=== PATIENT | male | born 1930 | race Caucasian/White ===

== ENCOUNTER 2016-03-15 07:53 | Emergency (ER) | payer MEDICARE, OTHER ==
[2016-03-15] MEDS ORDERED: Rocephin 1000 MG INJ IM ONE (08:21)
[2016-03-15] MEDS ORDERED: Rocephin 1000 MG INJ ONE (08:21)
[2016-03-15] MEDS ORDERED: XYLOCAINE 1% HCL 20 ML MDV ONE (08:21)
--- NOTE | 2016-03-15 08:26 | ERPHSYRPT ---
- History of Present Illness Time Seen by Provider: 03/15/16 08:22 Source: patient Exam Limitations: no limitations Patient Subjective Stated Complaint: pt reports his cat scratched him 3 days ago -reports redness to left forearm Triage Nursing Assessment: pt pink warm et dry-a & o x 3-redness et warmth noted to left forearm-radial pulse strong Physician History: pt reports his cat scratched him 3 days ago-reports redness to left forearm Timing/Duration: day(s) (5-6 days ago) Severity: mild Modifying Factors: Improves With: cold therapy Associated Symptoms: denies symptoms Allergies/Adverse Reactions: No Known Drug Allergies Allergy (Verified 03/15/16 08:00) Home Medications: Levothyroxine Sodium 75 Mcg [Synthroid 75 Mcg] 75 mcg PO DAILY 11/22/15 [ History] Ropinirole HCl 0.5 mg [Requip 0.5 MG] 1 mg PO DAILY 11/22/15 [History] Albuterol 17 gm IH QID 01/30/16 [History] Atorvastatin Calcium [Lipitor 20MG Tablet] 20 mg PO DAILY 01/30/16 [History] Furosemide 20 mg [Lasix 20 mg] 20 mg PO DAILY 01/30/16 [History] Hydrocodone Bit/Acetaminophen [[place] 10-325 Tablet] 1 tab PO Q6H PRN 01/30/16 [ History] Ipratropium [place] 0.2 mg IH QID 01/30/16 [History] Metoprolol Succinate 50 mg [Toprol Xl 50 MG] 50 mg PO DAILY 01/30/16 [ History] Furosemide 40 mg [Lasix 40 MG] 40 mg PO DAILY 02/12/16 [History] Hx Tetanus, Diphtheria Vaccination/Date Given: No Hx Influenza Vaccination/Date Given: No Hx Pneumococcal Vaccination/Date Given: No Immunizations Up to Date: Yes - Review of Systems Constitutional: No Symptoms Eyes: No Symptoms Ears, Nose, & Throat: No Symptoms Respiratory: No Symptoms Cardiac: No Symptoms Abdominal/Gastrointestinal: No Symptoms Genitourinary Symptoms: No Symptoms Musculoskeletal: No Symptoms Skin: Other (cat scratchn on left forearm) - Past Medical History Pertinent Past Medical History: Yes Neurological History: Other ENT History: No Pertinent History Cardiac History: High Cholesterol, Hypertension Respiratory History: Asthma, Bronchitis, COPD, Emphysema, Sleep Apnea Endocrine Medical History: No Pertinent History Musculoskeletal History: Arthritis GI Medical History: Hemorrhoids, Hernia History: No Pertinent History Psycho-Social History: No Pertinent History Male Reproductive Disorders: No Pertinent History Other Medical History: skin cancer, Dizziness - Past Surgical History Past Surgical History: Yes Neuro Surgical History: No Pertinent History Cardiac: Other Respiratory: No Pertinent History Gastrointestinal: Hernia Repair Genitourinary: No Pertinent History Musculoskeletal: No Pertinent History Male Surgical History: No Pertinent History Other Surgical History: Abdominal aortic aneurysm repair, right ear surgery x3, - Social History Smoking Status: Former smoker How long have you smoked: 70 YEARS Exposure to second hand smoke: No Drug Use: none Patient Lives Alone: No - Nursing Vital Signs Nursing Vital Signs: Initial Vital Signs Temperature 97.9 F Temperature Source Oral Pulse Rate 72 Respiratory Rate 22 Blood Pressure [Right Arm] 170/69 Pain Intensity 0 - Physical Exam General Appearance: no apparent distress Eye Exam: PERRL/EOMI Ears, Nose, Throat Exam: normal ENT inspection Extremity Exam: inflammation (left forearm), swelling SpO2: 98 Oxygen Delivery: Room Air - Course Nursing assessment & vital signs reviewed: Yes - Progress Progress: improved Counseled pt/family regarding: diagnosis, need for follow-up - Departure Time of Disposition: 08:23 Departure Disposition: Home Clinical Impression: Cat scratch of forearm Qualifiers: Encounter type: initial encounter Laterality: left Qualified Code(s): S50.812A - Abrasion of left forearm, initial encounter; W55.03XA - Scratched by cat, initial encounter Condition: Stable Critical Care Time: No Referrals: FRANCOIS MANNING MD [Primary Care Provider] - Instructions: Cat Scratch Disease/Fever Additional Instructions: Please follow the instructions given to you. Please take your medication as prescribed if given. If symptoms recur or get worse, come back to the emergency room if you cannot reach your primary care physician, or call your primary care physician for an appointment. Again if your symptoms get worse, come back to the emergency room. Thanks for visiting emergency room, and let us take care of you. Prescriptions: Mupirocin [Bactroban OINTMENT] 1 gm TP BID #30 tube Cephalexin Mh 500 mg [Keflex 500 mg] 500 mg PO Q6H #40 capsule
[2016-03-15 08:31] VITALS: BP 165/70; PULSE 75; O2SAT 97
== END 2016-03-15 08:30 | disposition home or self-care (01) ==
LOC: ED 07:53
DX: S50.812A Abrasion of left forearm, initial encounter (principal); W55.03XA Scratched by cat, initial encounter
CPT/HCPCS: 96372; 99282; J0696

== ENCOUNTER 2016-03-15 12:17 | Emergency (ER) | payer MEDICARE, OTHER ==
[2016-03-15] MEDS ORDERED: PROTONIX 40 MG IV IV ONE ×2 (12:19→12:34)
[2016-03-15] MEDS ORDERED: Pepcid 20 MG VIAL IV ONE ×2 (12:19→12:34)
[2016-03-15] MEDS ORDERED: PROVENTIL 2.5 MG/3 ML NEB IH ONE ×2 (12:30→12:31)
[2016-03-15] MEDS ORDERED: Sodium Chloride 0.9% 1000 ML 1,000 ML IV SCH (12:30)
[2016-03-15] MEDS ORDERED: Sodium Chloride 0.9% 1000 ML 1,000 ML ONE (12:34)
[2016-03-15 12:36] VITALS: O2SAT 91
[2016-03-15 12:58] LABS: BASOPHIL % 0.1 % (0.0-0.4); Eosinophil % 1.2 % (0.00-5.0); Granulocytes % 47.1 % (36.0-66.0); Lymphocytes % 44.5 % (24.0-44.0); Mean Cell Volume 89.6 fl (78-100); Mean Platelet Volume 10.9 fl (6-9.5); Monocytes % 7.1 % (0.0-12.0); Platelet Count 124 K/mm3 (150-450); Red Blood Count 3.93 M/mm3 (4.1-5.6); Red Cell Distribution Width 14.4 % (11.5-14.0); White Blood Count 7.5 K/mm3 (4.0-10.5)
[2016-03-15 13:00] LABS: Mean Corpuscular Hemoglobin 28.7 pg (26-32)
[2016-03-15 13:09] LABS: ANION GAP 13.9 MEQ/L (5-15); Carbon Dioxide 30.1 mEq/L (21-32); Potassium 3.6 mEq/L (3.5-5.1)
--- NOTE | 2016-03-15 13:17 | ERPHSYRPT ---
- History of Present Illness Time Seen by Provider: 03/15/16 13:10 Source: patient, EMS Exam Limitations: no limitations Patient Subjective Stated Complaint: PT BROUGHT TO ED PER EMS REPORTS INCREASED SOB-PT STARTED ON NEW ANTIBIOTIC RUBIA 30 MIN AFTER TAKING-DENIES PAIN Triage Nursing Assessment: PT FLUSHED WARM UPON ARRIVAL-INCREASED WORK OF BREATHING NOTED-WHEEZE NOTED PRIOR TO NEB TX-REDNESS NOTED BODYWIDE Physician History: 80-year-old male came to the emergency room with complaining of shortness of breath. 34 hours ago. Patient was seen in the emergency room when he came with complaining of cat scratch on his left forearm and was given intramuscular Rocephin and cephalexin 500 mg 4 times a day. Patient went home and took the first dose of cephalexin and in half an hour he started having epigastric pain, substernal pain, which shortness of breath. So he called ambulance and patient was brought into the emergency room. Patient did not have any chest pain when he came to the emergency room was mildly short of breath. He was complaining of some epigastric discomfort. Timing/Duration: today Severity of Dyspnea-Max: mild Severity of Dyspnea-Current: mild Possible Cause: no prior episodes Modifying Factors: Improves With: nothing Associated Symptoms: denies symptoms Allergies/Adverse Reactions: No Known Drug Allergies Allergy (Verified 03/15/16 12:32) Home Medications: Levothyroxine Sodium 75 Mcg [Synthroid 75 Mcg] 75 mcg PO DAILY 11/22/15 [ History] Ropinirole HCl 0.5 mg [Requip 0.5 MG] 1 mg PO DAILY 11/22/15 [History] Albuterol 17 gm IH QID 01/30/16 [History] Atorvastatin Calcium [Lipitor 20MG Tablet] 20 mg PO DAILY 01/30/16 [History] Furosemide 20 mg [Lasix 20 mg] 20 mg PO DAILY 01/30/16 [History] Hydrocodone Bit/Acetaminophen [[place] 10-325 Tablet] 1 tab PO Q6H PRN 01/30/16 [ History] Ipratropium [place] 0.2 mg IH QID 01/30/16 [History] Metoprolol Succinate 50 mg [Toprol Xl 50 MG] 50 mg PO DAILY 01/30/16 [ History] Furosemide 40 mg [Lasix 40 MG] 40 mg PO DAILY 02/12/16 [History] Hx Tetanus, Diphtheria Vaccination/Date Given: No Hx Influenza Vaccination/Date Given: No Hx Pneumococcal Vaccination/Date Given: No Immunizations Up to Date: Yes - Review of Systems Constitutional: No Symptoms Eyes: No Symptoms Ears, Nose, & Throat: No Symptoms Respiratory: Cough, Dyspnea Cardiac: No Symptoms Abdominal/Gastrointestinal: No Symptoms Genitourinary Symptoms: No Symptoms Musculoskeletal: No Symptoms Skin: No Symptoms - Past Medical History Pertinent Past Medical History: Yes Neurological History: Other ENT History: No Pertinent History Cardiac History: High Cholesterol, Hypertension Respiratory History: Asthma, Bronchitis, COPD, Emphysema, Sleep Apnea Endocrine Medical History: No Pertinent History Musculoskeletal History: Arthritis GI Medical History: Hemorrhoids, Hernia History: No Pertinent History Psycho-Social History: No Pertinent History Male Reproductive Disorders: No Pertinent History Other Medical History: skin cancer, Dizziness - Past Surgical History Past Surgical History: Yes Neuro Surgical History: No Pertinent History Cardiac: Other Respiratory: No Pertinent History Gastrointestinal: Hernia Repair Genitourinary: No Pertinent History Musculoskeletal: No Pertinent History Male Surgical History: No Pertinent History Other Surgical History: Abdominal aortic aneurysm repair, right ear surgery x3, - Social History Smoking Status: Former smoker How long have you smoked: 70 YEARS Exposure to second hand smoke: No Drug Use: none Patient Lives Alone: No - Nursing Vital Signs Nursing Vital Signs: Initial Vital Signs Pulse Rate 78 Respiratory Rate 28 Blood Pressure [Right Arm] 136/70 - Physical Exam General Appearance: mild distress Eye Exam: PERRL/EOMI Ears, Nose, Throat Exam: hearing grossly normal Neck Exam: normal inspection Respiratory Exam: diminished breath sounds, wheezing Cardiovascular/Chest Exam: normal heart sounds Abdominal/Gastrointestinal Exam: soft Extremity Exam: non-tender SpO2 Interpretation: borderline oxygenation SpO2: 91 Oxygen Delivery: Nasal Cannula - Course Nursing assessment & vital signs reviewed: Yes Ordered Tests: Active Orders 24 hr Category Date Time Status EKG-ER Only STAT Care 03/15/16 12:44 Active IV Insertion STAT Care 03/15/16 12:44 Active IV Insertion-2nd Peripheral STAT Care 03/15/16 12:44 Active Oxygen-ED Only NASAL CANNULA 2 lpm Care 03/15/16 12:45 Active BMP Stat Lab 03/15/16 12:28 Received CBC W DIFF Stat Lab 03/15/16 12:28 Completed Respiratory Nebulizer STAT RT 03/15/16 12:31 Completed Medication Summary Generic Name Dose Route Start Last Admin Trade Name Beth PRN Reason Stop Dose Admin Sodium Chloride 1,000 mls @ 50 mls/hr 03/15/16 12:30 03/15/16 12:38 Sodium Chloride 0.9% 1000 Ml IV 04/14/16 12:29 50 mls/hr .Q20H RUDDY Administration Discontinued Medications Generic Name Dose Route Start Last Admin Trade Name Beth PRN Reason Stop Dose Admin Albuterol Sulfate 2.5 mg 03/15/16 12:30 03/15/16 12:35 Proventil 2.5 Mg/3 Ml Neb IH 03/15/16 12:31 2.5 mg STAT ONE Administration Albuterol Sulfate Confirm 03/15/16 12:31 Proventil 2.5 Mg/3 Ml Neb Administered 03/15/16 12:32 Dose 2.5 mg IH .STK-MED ONE Famotidine 20 mg 03/15/16 12:19 03/15/16 12:38 Pepcid 20 Mg Vial IV 03/15/16 12:20 20 mg STAT ONE Administration Famotidine Confirm 03/15/16 12:34 Pepcid 20 Mg Vial Administered 03/15/16 12:35 Dose 20 mg IV .STK-MED ONE Sodium Chloride Confirm 03/15/16 12:34 Sodium Chloride 0.9% 1000 Ml Administered 03/15/16 12:35 Dose 1,000 mls @ ud .ROUTE .STK-MED ONE Pantoprazole Sodium 40 mg 03/15/16 12:19 03/15/16 12:38 Protonix 40 Mg Iv IV 03/15/16 12:20 40 mg STAT ONE Administration Pantoprazole Sodium Confirm 03/15/16 12:34 Protonix 40 Mg Iv Administered 03/15/16 12:35 Dose 40 mg IV .STK-MED ONE Lab/Rad Data: Laboratory Result Diagrams 03/15/16 12:28 Laboratory Results 03/15/16 Range/Units 12:28 WBC 7.5 (4.0-10.5) K/mm3 RBC 3.93 L (4.1-5.6) M/mm3 Hgb 11.3 L (12.5-18.0) gm/dl Hct 35.2 L (42-50) % MCV 89.6 (78-100) fl MCH 28.7 (26-32) pg MCHC 32.1 (32-36) g/dl RDW 14.4 H (11.5-14.0) % Plt Count 124 L (150-450) K/mm3 MPV 10.9 H (6-9.5) fl Gran % 47.1 (36.0-66.0) % Lymphocytes % 44.5 H (24.0-44.0) % Monocytes % 7.1 (0.0-12.0) % Eosinophils % 1.2 (0.00-5.0) % Basophils % 0.1 (0.0-0.4) % Basophils # 0.01 (0-0.4) - Progress Progress: improved Air Movement: good Blood Culture(s) Obtained: No Antibiotics given: No Counseled pt/family regarding: lab results, diagnosis, need for follow-up - Departure Time of Disposition: 13:18 Departure Disposition: Home Clinical Impression: Shortness of breath Side effects of treatment Qualifiers: Encounter type: initial encounter Qualified Code(s): T88.9XXA - Complication of surgical and medical care, unspecified, initial encounter Condition: Stable Critical Care Time: No Referrals: JOE MANNING MD [Primary Care Provider] - Instructions: Adverse Drug Reaction -- GI Intolerance Additional Instructions: hold cephalexin , follow up with Dr Joe manning on wednesday
[2016-03-15 13:21] VITALS: BP 125/55; PULSE 72
== END 2016-03-15 13:49 | disposition home or self-care (01) ==
LOC: ED 12:17
DX: R06.02 Shortness of breath (principal); T88.9XXA Complication of surgical and medical care, unspecified, initial encounter
CPT/HCPCS: 36000; 36415; 80048; 85025; 93005; 94640; 96360; 96374; 96375; 99284

== ENCOUNTER 2020-04-10 18:53 | Emergency (ER) | payer MEDICARE, OTHER ==
[2020-04-10] MEDS ORDERED: Sodium Chloride 0.9% 1000 ML 1,000 ML IV STA (19:48)
[2020-04-10] MEDS ORDERED: Sodium Chloride 0.9% 1000 ML 1,000 ML ONE (19:50)
[2020-04-10 20:01] LABS: Absolute Neutrophil Ct (ANC) 8.39 (1.4-6.9); BASOPHIL % 0.3 % (0.0-0.4); Basophil (Absolute #) 0.03 (0-0.4); Eosinophil % 0.2 % (0.00-5.0); Eosinophil (Absolute #) 0.02 (0-0.5); Hematocrit 34.9 % (42-50); Hemoglobin 10.8 gm/dl (12.5-18.0); Lymphocyte (Absolute #) 0.83 (1.0-4.6); Lymphocytes % 8.3 % (24.0-44.0); Mean Cell Volume 84.3 fl (78-100); Mean Corpuscular Hemoglobin 26.1 pg (26-32); Mean Corpuscular Hgb Concent. 30.9 g/dl (32-36); Mean Platelet Volume 10.7 fl (7.5-11.0); Monocyte (Absolute #) 0.74 (0.0-1.3); Monocytes % 7.4 % (0.0-12.0); Neutrophil % 83.8 % (36.0-66.0); Platelet Count 188 K/mm3 (150-450); Red Blood Count 4.14 M/mm3 (4.1-5.6); Red Cell Distribution Width 15.3 % (11.5-14.0)
--- NOTE | 2020-04-10 20:04 | ERPHSYRPT ---
- History of Present Illness Time Seen by Provider: 04/10/20 19:05 Source: patient, family, EMS Patient Subjective Stated Complaint: Medics states "HE fell yesterday and hit the front of his head and he refused to come to the ed. He fell again today and his son found him on the floor and he says his back and the back of his head hurts." Triage Nursing Assessment: PT presented via ambulance and placed in room 3. Pt has bruising noted to forehead, bruising noted to upper back. PT alert and confused. PT able to answer some questions but not others . PT son in room with him. Physician History: Patient has had two falls in the past 24 hours, with one yesterday Occurred: this afternoon, yesterday Reason for Fall: unknown, fell from standing pos Injuries/Pain Location: head, neck, back Loss of Consciousness: no loss of consciousness Quality: aching Severity of Pain-Max: moderate Severity of Pain-Current: mild Modifying Factors: Worsens With: movement Associated Symptoms (Fall): back pain, neck pain, trouble walking, No abdominal pain, No confusion, No chest pain, No dizziness, No extremity injury, No headach e, No lightheadedness, No seizures, No shortness of breath, No vomiting Allergies/Adverse Reactions: cephalexin [From Keflex] Allergy (Severe, Verified 04/10/20 19:22) Difficulty Breathing Home Medications: Levothyroxine Sodium 75 Mcg [Synthroid 75 Mcg] 75 mcg PO DAILY 11/22/15 [History] Ropinirole HCl 0.5 mg [Requip 0.5 MG] 1 mg PO DAILY 11/22/15 [History] Albuterol 17 gm IH QID 01/30/16 [History] Atorvastatin Calcium [Lipitor 20MG Tablet] 20 mg PO DAILY 01/30/16 [History] Furosemide 20 mg [Lasix 20 mg] 20 mg PO DAILY 01/30/16 [History] Hydrocodone Bit/Acetaminophen [[place] 10-325 Tablet] 1 tab PO Q6H PRN 01/30/16 [H istory] Ipratropium [place] 0.2 mg IH QID 01/30/16 [History] Metoprolol Succinate 50 mg [Toprol Xl 50 MG] 50 mg PO DAILY 01/30/16 [History] Furosemide 40 mg [Lasix 40 MG] 40 mg PO DAILY 02/12/16 [History] Hx Tetanus, Diphtheria Vaccination/Date Given: No Hx Influenza Vaccination/Date Given: No Hx Pneumococcal Vaccination/Date Given: No Immunizations Up to Date: Yes Travel Risk - International Travel Have you traveled outside of the country in past 3 weeks: No - Coronavirus Screening Are you exhibiting any of the following symptoms?: No Close contact with a COVID-19 positive Pt in past 14-21 Days: No - Review of Systems Constitutional: No Fever, No Chills Eyes: No Discharge, No Eye Pain Ears, Nose, & Throat: No Nose Discharge, No Epistaxis, No Mouth Pain Respiratory: No Cough, No Dyspnea Cardiac: No Chest Pain, No Edema, No Syncope Abdominal/Gastrointestinal: No Abdominal Pain, No Nausea, No Vomiting, No Diarrhea Genitourinary Symptoms: No Dysuria, No Hematuria Musculoskeletal: Back Pain, Neck Pain Skin: No Rash Neurological: No Dizziness, No Focal Weakness, No Sensory Changes Psychological: No Symptoms Endocrine: No Symptoms Hematologic/Lymphatic: No Easy Bleeding, No Easy Bruising All Other Systems: Reviewed and Negative - Past Medical History Pertinent Past Medical History: Yes Neurological History: Other ENT History: No Pertinent History Cardiac History: High Cholesterol, Hypertension Respiratory History: Asthma, Bronchitis, COPD, Emphysema, Sleep Apnea Endocrine Medical History: No Pertinent History Musculoskeletal History: Arthritis GI Medical History: Hemorrhoids, Hernia History: No Pertinent History Psycho-Social History: No Pertinent History Male Reproductive Disorders: No Pertinent History Other Medical History: skin cancer, Dizziness - Past Surgical History Past Surgical History: Yes Neuro Surgical History: No Pertinent History Cardiac: Other Respiratory: No Pertinent History Gastrointestinal: Hernia Repair Genitourinary: No Pertinent History Musculoskeletal: No Pertinent History Male Surgical History: No Pertinent History Other Surgical History: Abdominal aortic aneurysm repair, right ear surgery x3, - Social History Smoking Status: Former smoker How long have you smoked: 70 YEARS Exposure to second hand smoke: No Drug Use: none Patient Lives Alone: Yes - Nursing Vital Signs Nursing Vital Signs: Initial Vital Signs Temperature 97.4 F 04/10/20 18:54 Pulse Rate 81 04/10/20 18:54 Respiratory Rate 20 04/10/20 18:54 Blood Pressure 199/92 04/10/20 18:54 O2 Sat by Pulse Oximetry 96 04/10/20 18:54 Pain Scale Pain Intensity 4 - Michele Coma Score Best Eye Response (Spearman): (4) open spontaneously Best Verbal Response (Michele): (5) oriented Best Motor Response (Michele): (6) obeys commands Michele Total: 15 - Physical Exam General Appearance: no apparent distress, alert Head Injury: lacerations (superficial from the right forehead), swelling, No Richardson's Sign, No raccoon eyes, No tenderness Eye Exam: PERRL/EOMI, eyes nml inspection, No scleral icterus ENT Exam: airway nml, evidence of ENT injury Neck Exam: supple, trachea midline, normal alignment, normal inspection, c- collar in place (cleared and removed on physical examination on entrance into the emergency department), No limited range of motion, No paraspinous muscle tender, No tenderness, No mid-line tenderness Respiratory/Chest Exam: normal breath sounds, wheezing, No chest tenderness, No respiratory distress Cardiovascular Exam: normal heart sounds, regular rate/rhythm Gastrointestinal Exam: soft, normal bowel sounds, No tenderness, No distention, No guarding, No ecchymosis Back Exam: normal inspection, No CVA tenderness, No vertebral tenderness Extremity Exam: normal inspection, normal range of motion, pelvis stable, No contusions, No deformities, No bony point tenderness Neurologic Exam: alert, cooperative, accounts payable lead II-XII nml as tested, normal mood/affect, sensation nml, No motor deficits Skin Exam: normal color, warm, dry SpO2 Interpretation: normal SpO2: 96 O2 Delivery: Room Air - Course Nursing assessment & vital signs reviewed: Yes EKG Interpreted by Me: RATE (77), Sinus Rhythm, Left [place] Deviation, prolonged QT interval, Right Bundle Branch Block, Other (No acute ST or T wave changes in comparison to EKG from 03/13/2016; no appreciable change in comparison EKG from 03/13/2016) - CT Exams Head CT Interpretation: Tele-radiologist Report, No Fracture, No/Intracranial Hemorrhag Cervical Spine CT Interpretation: Tele-radiologist Report, No Fracture, Other Chest CT Interpretation: No Fracture, Other (, Pneumothorax, but enlarged pulmonary arteries favoring pulmonary hypertension; bibasilar fibrosis/scarring with new cardiomegaly) Abdomen/Pelvis CT Interpretation: Other (Compared to 04/01/2009. Enlarging 6 x 6.6 cm AAA, previously 4.9 x 4.9 cm with again aortobiiliac stent graft. No new acute ab dominal, pelvic abnormalities. Bony structures intact with osteopenia. Multilevel degenerative disc disease and new left hip arthroplasty and worsening moderate right hip D) Ordered Tests: Active Orders 24 hr Category Date Time Status EKG-ER Only STAT Care 04/10/20 19:40 Active ABDOMEN AND PELVIS W/0 CONTRAS [CT] Stat Exams 04/10/20 19:36 Taken CERVICAL SPINE WO CONTRAST [CT] Stat Exams 04/10/20 19:31 Taken CHEST WITHOUT CONTRAST [CT] Stat Exams 04/10/20 19:32 Taken HEAD WITHOUT CONTRAST [CT] Stat Exams 04/10/20 19:29 Taken RECONSTRUCTION [CT] Routine Exams 04/10/20 21:17 Taken RECONSTRUCTION [CT] Routine Exams 04/10/20 21:17 Taken CBC W DIFF Stat Lab 04/10/20 19:50 Completed CK (IN-HOUSE) [CK-Creatinine Phosphokinase] Stat Lab 04/10/20 19:50 Completed CMP Stat Lab 04/10/20 19:50 Completed CULTURE,URINE Stat Lab 04/10/20 20:03 Ordered Lactic Acid Stat Lab 04/10/20 20:00 Completed MAG [MAGNESIUM] Stat Lab 04/10/20 19:50 Completed PT INR [PROTIME WITH INR] Stat Lab 04/10/20 19:50 Completed TROPONIN Q3H Lab 04/10/20 19:50 Completed TROPONIN Q3H Lab 04/10/20 22:45 Ordered UA W/RFX UR CULTURE Stat Lab 04/10/20 20:06 Completed Medication Summary Discontinued Medications Generic Name Dose Route Start Last Admin Trade Name Freq PRN Reason Stop Dose Admin Aspirin 324 mg 04/10/20 21:10 04/10/20 21:13 Baby Aspirin 81 Mg Chew PO 04/10/20 21:11 324 mg STAT ONE Administration Sodium Chloride 1,000 mls @ 999 mls/hr 04/10/20 19:48 04/10/20 19:51 Sodium Chloride 0.9% 1000 Ml IV 04/10/20 20:48 999 mls/hr .Q1H1M STA Administration Sodium Chloride Confirm 04/10/20 19:50 Sodium Chloride 0.9% 1000 Ml Administered 04/10/20 19:51 Dose 1,000 mls @ ud .ROUTE .STK-MED ONE Lab/Rad Data: Laboratory Result Diagrams 04/10/20 19:50 04/10/20 19:50 Laboratory Results 04/10/20 04/10/20 04/10/20 Range/Units 20:06 20:00 19:50 WBC (4.0-10.5) K/mm3 RBC (4.1-5.6) M/mm3 Hgb (12.5-18.0) gm/dl Hct (42-50) % MCV (78-100) fl MCH (26-32) pg MCHC (32-36) g/dl RDW (11.5-14.0) % Plt Count (150-450) K/mm3 MPV (7.5-11.0) fl Gran % (36.0-66.0) % Eos # (Auto) (0-0.5) Absolute Lymphs (auto) (1.0-4.6) Absolute Monos (auto) (0.0-1.3) Lymphocytes % (24.0-44.0) % Monocytes % (0.0-12.0) % Eosinophils % (0.00-5.0) % Basophils % (0.0-0.4) % Absolute Granulocytes (1.4-6.9) Basophils # (0-0.4) PT (8.83-12.87) SECONDS INR (0.8-3.0) Sodium (137-145) mmol/L Potassium (3.5-5.1) mmol/L Chloride (98-107) mmol/L Carbon Dioxide (22-30) mmol/L Anion Gap (5-15) MEQ/L BUN (9-20) mg/dL Creatinine (0.66-1.25) mg/dL Estimated GFR ML/MIN Glucose (74-106) mg/dL Lactic Acid 1.2 (0.4-2.0) Calcium (8.4-10.2) mg/dL Magnesium (1.6-2.3) mg/dL Total Bilirubin (0.2-1.3) mg/dL AST (17-59) U/L ALT (0-50) U/L Alkaline Phosphatase (38-126) U/L Creatine Kinase (55-170) U/L Troponin I 0.105 H* (0.000-0.034) ng/mL Serum Total Protein (6.3-8.2) g/dL Albumin (3.5-5.0) g/dL Urine Color YELLOW (YELLOW) Urine Appearance CLOUDY (CLEAR) Urine pH 5.0 (5-6) Ur Specific [place] 1.018 (1.005-1.025) Urine Protein 100 (Negative) Urine Ketones TRACE (NEGATIVE) Urine Blood MODERATE (0-5) Aj/ul Urine Nitrite NEGATIVE (NEGATIVE) Urine Bilirubin NEGATIVE (NEGATIVE) Urine Urobilinogen NEGATIVE (0-1) mg/dL Ur Leukocyte Esterase NEGATIVE (NEGATIVE) Urine WBC (Auto) 6-10 (0-5) /HPF Urine RBC (Auto) 3-5 (0-2) /HPF U Epithel Cells (Auto) NONE (FEW) /HPF Urine Bacteria (Auto) FEW (NEGATIVE) /HPF Amorphous Crystals FEW (NEGATIVE) /HPF Urine Mucus (Auto) SLIGHT (NEGATIVE) /HPF Urine Culture Reflexed ORDERED SEPARATELY (NO) Urine Glucose NEGATIVE (NEGATIVE) mg/dL 04/10/20 04/10/20 04/10/20 Range/Units 19:50 19:50 19:50 WBC (4.0-10.5) K/mm3 RBC (4.1-5.6) M/mm3 Hgb (12.5-18.0) gm/dl Hct (42-50) % MCV (78-100) fl MCH (26-32) pg MCHC (32-36) g/dl RDW (11.5-14.0) % Plt Count (150-450) K/mm3 MPV (7.5-11.0) fl Gran % (36.0-66.0) % Eos # (Auto) (0-0.5) Absolute Lymphs (auto) (1.0-4.6) Absolute Monos (auto) (0.0-1.3) Lymphocytes % (24.0-44.0) % Monocytes % (0.0-12.0) % Eosinophils % (0.00-5.0) % Basophils % (0.0-0.4) % Absolute Granulocytes (1.4-6.9) Basophils # (0-0.4) PT 14.4 H (8.83-12.87) SECONDS INR 1.27 (0.8-3.0) Sodium (137-145) mmol/L Potassium (3.5-5.1) mmol/L Chloride (98-107) mmol/L Carbon Dioxide (22-30) mmol/L Anion Gap (5-15) MEQ/L BUN (9-20) mg/dL Creatinine (0.66-1.25) mg/dL Estimated GFR ML/MIN Glucose (74-106) mg/dL Lactic Acid (0.4-2.0) Calcium (8.4-10.2) mg/dL Magnesium 2.2 (1.6-2.3) mg/dL Total Bilirubin (0.2-1.3) mg/dL AST (17-59) U/L ALT (0-50) U/L Alkaline Phosphatase (38-126) U/L Creatine Kinase 2074 H (55-170) U/L Troponin I (0.000-0.034) ng/mL Serum Total Protein (6.3-8.2) g/dL Albumin (3.5-5.0) g/dL Urine Color (YELLOW) Urine Appearance (CLEAR) Urine pH (5-6) Ur Specific [place] (1.005-1.025) Urine Protein (Negative) Urine Ketones (NEGATIVE) Urine Blood (0-5) Aj/ul Urine Nitrite (NEGATIVE) Urine Bilirubin (NEGATIVE) Urine Urobilinogen (0-1) mg/dL Ur Leukocyte Esterase (NEGATIVE) Urine WBC (Auto) (0-5) /HPF Urine RBC (Auto) (0-2) /HPF U Epithel Cells (Auto) (FEW) /HPF Urine Bacteria (Auto) (NEGATIVE) /HPF Amorphous Crystals (NEGATIVE) /HPF Urine Mucus (Auto) (NEGATIVE) /HPF Urine Culture Reflexed (NO) Urine Glucose (NEGATIVE) mg/dL 04/10/20 04/10/20 Range/Units 19:50 19:50 WBC 10.0 (4.0-10.5) K/mm3 RBC 4.14 (4.1-5.6) M/mm3 Hgb 10.8 L (12.5-18.0) gm/dl Hct 34.9 L (42-50) % MCV 84.3 (78-100) fl MCH 26.1 (26-32) pg MCHC 30.9 L (32-36) g/dl RDW 15.3 H (11.5-14.0) % Plt Count 188 (150-450) K/mm3 MPV 10.7 (7.5-11.0) fl Gran % 83.8 H (36.0-66.0) % Eos # (Auto) 0.02 (0-0.5) Absolute Lymphs (auto) 0.83 L (1.0-4.6) Absolute Monos (auto) 0.74 (0.0-1.3) Lymphocytes % 8.3 L (24.0-44.0) % Monocytes % 7.4 (0.0-12.0) % Eosinophils % 0.2 (0.00-5.0) % Basophils % 0.3 (0.0-0.4) % Absolute Granulocytes 8.39 H (1.4-6.9) Basophils # 0.03 (0-0.4) PT (8.83-12.87) SECONDS INR (0.8-3.0) Sodium 138 (137-145) mmol/L Potassium 4.9 (3.5-5.1) mmol/L Chloride 103 (98-107) mmol/L Carbon Dioxide 21 L (22-30) mmol/L Anion Gap 18.6 H (5-15) MEQ/L BUN 58 H (9-20) mg/dL Creatinine 2.94 H (0.66-1.25) mg/dL Estimated GFR 21.5 ML/MIN Glucose 85 (74-106) mg/dL Lactic Acid (0.4-2.0) Calcium 9.2 (8.4-10.2) mg/dL Magnesium (1.6-2.3) mg/dL Total Bilirubin 0.60 (0.2-1.3) mg/dL AST 61 H (17-59) U/L ALT 17 (0-50) U/L Alkaline Phosphatase 69 (38-126) U/L Creatine Kinase (55-170) U/L Troponin I (0.000-0.034) ng/mL Serum Total Protein 7.6 (6.3-8.2) g/dL Albumin 4.2 (3.5-5.0) g/dL Urine Color (YELLOW) Urine Appearance (CLEAR) Urine pH (5-6) Ur Specific [place] (1.005-1.025) Urine Protein (Negative) Urine Ketones (NEGATIVE) Urine Blood (0-5) Aj/ul Urine Nitrite (NEGATIVE) Urine Bilirubin (NEGATIVE) Urine Urobilinogen (0-1) mg/dL Ur Leukocyte Esterase (NEGATIVE) Urine WBC (Auto) (0-5) /HPF Urine RBC (Auto) (0-2) /HPF U Epithel Cells (Auto) (FEW) /HPF Urine Bacteria (Auto) (NEGATIVE) /HPF Amorphous Crystals (NEGATIVE) /HPF Urine Mucus (Auto) (NEGATIVE) /HPF Urine Culture Reflexed (NO) Urine Glucose (NEGATIVE) mg/dL - Progress Progress: unchanged Discussed with : Maria oDlores (At 20:45, spoke with Dr. Manning, patient's physician, about his elevated creatinine, significant elevated CPK, and elevated troponin. Dr. Manning recommended transferring to [facility] in [place], [place]), Other (22:05, discussed the patient with Dr. Peña, emergency department attending at [facility]. Dr. Peña accepted the patient for transfer and there is no need to start any heparin drip at this time and they will determine at [facility] with a repeat troponin if they need to do) Counseled pt/family regarding: lab results, diagnosis, need for follow-up (Due to patient having worsening renal function, significant elevated CK and elevated troponin, patient be transferred to [facility] for continued evaluation, management and any other definitive therapy for the other incidental findings of worsening condition such as his AAA ), rad results - Departure Departure Disposition: Transfer ([facility]) Clinical Impression: Elevated troponin, AAA (abdominal aortic aneurysm) without rupture Acute on chronic renal failure Qualifiers: Acute renal failure type: unspecified Chronic kidney disease stage: stage 4 (severe) Qualified Code(s): N17.9 - Acute kidney failure, unspecified; N18.4 - Chronic kidney disease, stage 4 (severe) Rhabdomyolysis Qualifiers: Rhabdomyolysis type: non-traumatic Qualified Code(s): M62.82 - Rhabdomyolysis L5 vertebral fracture Qualifiers: Encounter type: initial encounter Fracture type: closed Hypertension Qualifiers: Hypertension type: essential hypertension Qualified Code(s): I10 - Essential (primary) hypertension Condition: Fair Critical Care Time: Yes Critical Care Time(excluding separately billable procedures): Critical 30-74 mins Referrals: FRANCOIS MANNING MD [Primary Care Provider] -
[2020-04-10 20:12] LABS: INR 1.27 (0.8-3.0); PROTIME 14.4 SECONDS (8.83-12.87)
[2020-04-10 20:15] LABS: ALBUMIN 4.2 g/dL (3.5-5.0); ANION GAP 18.6 MEQ/L (5-15); BILIRUBIN,TOTAL 0.6 mg/dL (0.2-1.3); Calcium 9.2 mg/dL (8.4-10.2); Creatinine 1 2.94 mg/dL (0.66-1.25); EST GLOMERULAR FILTRATION RATE 21.5 ML/MIN; Potassium 4.9 mmol/L (3.5-5.1); Total Protein 7.6 g/dL (6.3-8.2)
[2020-04-10 20:31] LABS: Amourphous Crystal FEW /HPF (NEGATIVE); Appearance CLOUDY (CLEAR); Bacteria FEW /HPF (NEGATIVE); Bilirubin NEGATIVE (NEGATIVE); Blood MODERATE Ery/ul (0-5); Glucose NEGATIVE (NEGATIVE); Ketones TRACE (NEGATIVE); Leukocyte Esterase NEGATIVE (NEGATIVE); Mucus SLIGHT /HPF (NEGATIVE); Nitrite NEGATIVE (NEGATIVE); Protein,Urine Dip 100 (Negative); Specific Gravity 1.018 (1.005-1.025); Urobilinogen NEGATIVE mg/dL (0-1)
[2020-04-10] MEDS ORDERED: BABY ASPIRIN 81 MG CHEW PO ONE (21:10)
[2020-04-10 22:05] VITALS: O2SAT 96
[2020-04-10 22:27] VITALS: BP 151/76; PULSE 71
--- NOTE | 2020-04-11 08:46 | XRAY ---
Indication: Right head injury following fall. Multiple contiguous axial images obtained through the head without contrast. Comparison: August 21, 2009. There is progressive age-appropriate global atrophy and moderate periventricular degenerative micro-ischemia bilaterally. No acute intracranial hemorrhage, abnormal extra-axial fluid collection, or mass effect. Fourth ventricle is midline without hydrocephalus. Bony calvarium intact. Again right mastoidectomy. Remaining visualized paranasal sinuses and left mastoid air cells are clear. Impression: Nonacute senile brain.
--- NOTE | 2020-04-11 08:50 | XRAY ---
Indication: Neck pain following fall. Multiple contiguous axial images obtained through the cervical spine. Sagittal and coronal reformatted images obtained. Comparison: None Age-related osteopenia. Axial images negative for acute fracture, suspicious bony lesions, or spinal canal stenosis. There is mild multilevel degenerative endplate spurring and mild/moderate multilevel bilateral degenerative facet hypertrophy. Sagittal and coronal reformatted images demonstrates cervical lordotic reversal, positional versus paraspinal spasm. 2 mm C3 anterolisthesis on C4. Minimal/mild multilevel disc space narrowing greatest at C7-T1. No acute compression fracture or jumped facet. Normal appearing craniocervical junction. Visualized noncontrasted soft tissues demonstrates heavy scattered carotid calcifications bilaterally. CT head and CT chest reported separately. Impression: 1. Cervical lordotic reversal, positional versus paraspinal spasm. 2. Osteopenia, multilevel degenerative spondylosis, and minimal grade 1 C3 spondylolisthesis. 3. Negative acute fracture.
--- NOTE | 2020-04-11 08:58 | XRAY ---
Indication: Chest/back pain following fall. Multiple contiguous axial images obtained through the chest without contrast. Comparison: April 01 and August 19, 2009. Lungs are inflated with worsening bibasilar subsegmental atelectasis/scarring. 5 mm peripheral left lower lobe noncalcified nodule, previously 3 mm and favored to be benign, probably granulomatous. No suspicious pulmonary mass, infiltrate, effusion, or pneumothorax. Heart is now enlarged again with scattered coronary calcifications. Pulmonary arteries remain enlarged favoring pulmonary hypertension. Aorta is again moderately arteriosclerotic without aneurysmal dilatation. Stable right hilar calcified nodes. Bony thorax again demonstrates osteopenia, mild degenerative changes throughout the spine/both shoulders, and tiny right glenoid process bone island. New finding old right 6 rib fracture. No acute fracture or suspicious bony lesions. CT abdomen/pelvis reported separately. Impression: 1. Worsening bibasilar atelectasis/scarring with again benign left lower lobe noncalcified micronodule and old granulomatous disease. 2. New cardiomegaly. Negative for acute pneumonic process or CHF. 3. Continue enlarged pulmonary arteries favoring pulmonary hypertension. 4. Again incidental chronic bony findings.
--- NOTE | 2020-04-11 09:02 | XRAY ---
Indication: Pain following fall. Sagittal, coronal, and axial reformatted images of the thoracic spine obtained using the right data from CT chest study of the same day. Comparison: CT chest April 01, 2009. Osseous structures demineralized consistent with patient's age. There is progressive worsening minimal/mild multilevel lumbar degenerative endplate spurring. No acute fracture, suspicious bony lesions, or spinal canal stenosis. Sagittal and coronal reformatted images demonstrates normal alignment with vertebral body heights/disc spaces maintained. No acute compression fracture or subluxation. CT cervical spine and CT chest/abdomen/pelvis reported separately. Impression: Osteopenia and multilevel degenerative changes. Negative for acute fracture or subluxation.
--- NOTE | 2020-04-11 09:22 | XRAY ---
Indication: Pain following fall. Sagittal, coronal, and axial reformatted images of the lumbar spine obtained using raw data from CT abdomen/pelvis of the same day. Comparison: CT abdomen/pelvis April 01, 2009. Osseous structures remain demineralized. Progressive worsening broad-based disc bulge at L4-S1 level with again L5-S1 degenerative vacuum disc phenomena. Facets are symmetric with now mild bilateral L3-L5 degenerative facet arthropathy. Sagittal and coronal reformatted images demonstrates normal alignment with minimal L4-S1 and disc space narrowing. New remote-appearing L5 superior endplate fracture with approximately 50% height loss but no spinal canal/foraminal encroachment. No acute compression fracture or subluxation. CT abdomen/pelvis reported separately. Impression: 1. Again osteopenia with new remote-appearing L5 superior endplate fracture and progressive worsening L3-S1 degenerative spondylosis. 2. Negative acute fracture, subluxation, or spinal canal stenosis.
--- NOTE | 2020-04-11 09:23 | XRAY ---
Indication: Back pain following fall. Multiple contiguous axial images obtained through the abdomen and pelvis without contrast. Comparison: April 01, 2009. CT chest reported separately. New left hip prosthesis produces extreme beam artifact limiting these levels. Noncontrasted stomach and bowel loops appear nonobstructed. No free fluid/air. Previous 1.8 cm right renal cyst today measures 2.8 cm. Both kidneys demonstrate nonobstructing micro-calculi increased in number. Remaining liver, gallbladder, pancreas, spleen, adrenal glands, kidneys, ureters, and bladder appear unremarkable for noncontrast exam. Again heavy scattered arteriosclerotic calcifications. Interval enlarging AAA today measuring 6.0 x 6.6 cm in greatest axial dimension, previously 4.9 x 4.9 cm. Stable aortobiiliac stent graft. Lack of IV contrast precludes further characterization. Osseous structures remain demineralized with progressive worsening lower lumbar degenerative spondylosis. New finding remote-appearing L5 superior endplate fracture with approximately 50% height loss and remote sacrococcygeal junction fracture. Impression: 1. Interval left total hip arthroplasty with intact bipolar prosthesis. Prosthetic beam artifact limits these levels. 2. Enlarging AAA with again aortobiiliac stent graft in situ. Lack of IV contrast precludes further characterization. 3. Chronic bony findings including new remote L5 endplate fracture and remote sacrococcygeal fracture. 4. Enlarging right renal cyst. Again nonobstructing bilateral renal micro-calculi. 5. Remaining CT abdomen/pelvis without contrast exam is negative.
== END 2020-04-10 22:20 | disposition short-term general hospital (02) ==
LOC: ED 18:53
DX: I71.4 Abdominal aortic aneurysm, without rupture (principal); R77.8 Other specified abnormalities of plasma proteins; N17.9 Acute kidney failure, unspecified; N18.4 Chronic kidney disease, stage 4 (severe); M62.82 Rhabdomyolysis; S32.059A Unspecified fracture of fifth lumbar vertebra, initial encounter for closed fracture; I10 Essential (primary) hypertension; M54.9 Dorsalgia, unspecified; M54.2 Cervicalgia; R26.2 Difficulty in walking, not elsewhere classified; Z79.899 Other long term (current) drug therapy; Z79.891 Long term (current) use of opiate analgesic; E78.00 Pure hypercholesterolemia, unspecified
CPT/HCPCS: 36415; 70450; 71250; 72125; 74176; 76376; 80053; 81001; 82550; 83605; 83735; 84484; 85025; 85610; 87086; 93005; 99285; 99291; A9270-GY